=== PATIENT | male | born 1980 | race Caucasian/White ===

== ENCOUNTER 2021-08-04 20:19 | Emergency (ER) | payer SELFPAY ==
[2021-08-04] MEDS ORDERED: KETOROLAC 30 MG/ML INJ ONE (21:21)
--- NOTE | 2021-08-04 21:28 | RAD REPORT ---
EXAM DESCRIPTION: RAD - Knee Left 3 View - 08/04/2021 9:21 pm CLINICAL HISTORY: trauma Trauma, pain COMPARISON: Ankle Right 3 View dated 08/04/2021; Foot Right 3 View dated 08/04/2021 FINDINGS: No acute fracture or dislocation is seen.
--- NOTE | 2021-08-04 21:29 | RAD REPORT ---
EXAM DESCRIPTION: RAD - Ankle Right 3 View - 08/04/2021 9:21 pm CLINICAL HISTORY: trauma Trauma, pain and swelling COMPARISON: No comparisons FINDINGS: Moderate posterior calcaneal spur is seen. No acute fracture or dislocation is evident.
--- NOTE | 2021-08-04 21:29 | RAD REPORT ---
EXAM DESCRIPTION: RAD - Foot Right 3 View - 08/04/2021 9:21 pm CLINICAL HISTORY: trauma Pain and swelling COMPARISON: No comparisons FINDINGS: Moderate posterior calcaneal spur. No acute fracture or dislocation is seen.
--- NOTE | 2021-08-04 21:55 | RAD REPORT ---
EXAM DESCRIPTION: CT - Thoracic Spine W/o Cont - 08/04/2021 9:42 pm CLINICAL HISTORY: Radiculopathy. trauma COMPARISON: No comparisons TECHNIQUE: Axial CT imaging through the thoracic spine was performed with coronal and sagittal re-fo rmatted images. All CT scans are performed using dose optimization technique as appropriate and may include automated exposure control or mA/KV adjustment according to patient size. FINDINGS: Vertebral body heights and disc spaces are largely maintained. A compression fracture is n ot present. No significant disc space narrowing. Thoracic spine alignment is within normal limits. No paraspinal masses or hematoma. Intervertebral disc detail is inherently limited on CT without gross findings of canal compromise. IMPRESSION: No acute abnormality is identified.
--- NOTE | 2021-08-04 21:57 | RAD REPORT ---
EXAM DESCRIPTION: CT - Spine Lumbar Wo Con - 08/04/2021 9:42 pm CLINICAL HISTORY: Radiculopathy. trauma COMPARISON: No comparisons TECHNIQUE: Axial noncontrast CT imaging of the lumbar spine was performed with coronal and sagittal re-formatted images. All CT scans are performed using dose optimization technique as appropriate and may include automated exposure control or mA/KV adjustment according to patient size. FINDINGS: No acute lumbar spine fracture seen. No aggressive marrow pattern or malalignment. Paraspinal tissues are normal in thickness. No paraspinal abscess or hematoma seen. Intervertebral disc disease assessment is inherently limited by CT. Within these limitations, no high -grade canal stenosis suspected. IMPRESSION: No acute lumbar spine abnormality is observed. Consider MRI follow-up for assessment of disc disease if clinically desired.
--- NOTE | 2021-08-04 22:08 | ER ---
Nurse's Notes [facility] Name: Tin Ragsdale Age: 41 yrs Sex: Male : 1980 Arrival Date: 08/04/2021 Time: 20:23 Bed 5 Private MD: Diagnosis: Fall, mechanical;Ankle sprain, Right;Knee contusion, abrasion, Left;Sprain, Lower Back Presentation: 08/04 20:36 Chief complaint: Patient states: I am having mid back pain and right ankle pain. I fell ld1 yesterday in a hole in the road, hitting my knee on the concrete. I am unsure if the two pains are related.. Coronavirus screen: At this time, the client does not indicate any symptoms associated with coronavirus-19. Ebola Screen: No symptoms or risks identified at this time. Initial Sepsis Screen: Does the patient meet any 2 criteria? No. Patient's initial sepsis screen is negative. Does the patient have a suspected source of infection? No. Patient's initial sepsis screen is negative. Risk Assessment: Do you want to hurt yourself or someone else? Patient reports no desire to harm self or others. Onset of symptoms was August 04, 2021. 20:36 Method Of Arrival: Ambulatory ld1 20:36 Acuity: BEAU 4 ld1 Triage Assessment: 20:38 General: Appears in no apparent distress. comfortable, Behavior is calm, cooperative, ld1 appropriate for age. Pain: Complains of pain in lumbar area and anterior aspect of right ankle Pain does not radiate. Pain currently is 7 out of 10 on a pain scale. Quality of pain is described as throbbing, Pain began 1 day ago. Is continuous. Neuro: Level of Consciousness is awake, alert, obeys commands, Oriented to person, place, time, situation. Cardiovascular: Capillary refill < 3 seconds Patient's skin is warm and dry. Respiratory: Airway is patent Respiratory effort is even, unlabored, Respiratory pattern is regular, symmetrical. GI: Abdomen is non-distended, obese. Musculoskeletal: Reports pain in lumbar area and anterior aspect of right ankle. Historical: - Allergies: 20:38 No Known Allergies; ld1 - Home Meds: 20:38 None [Active]; ld1 - PMHx: 20:38 Hypertensive disorder; ld1 - PSHx: 20:38 None; ld1 - Immunization history:: Adult Immunizations up to date, Client reports receiving the 2nd dose of the Covid vaccine. - Social history:: Smoking status: Patient denies any tobacco usage or history of. Patient/guardian denies using alcohol. Screenin:28 Abuse screen: Denies threats or abuse. Nutritional screening: No deficits noted. df1 Tuberculosis screening: No symptoms or risk factors identified. Fall Risk None identified. Assessment: 22:21 General: Appears in no apparent distress. Behavior is calm, cooperative. Pain: df1 Complains of pain in Right ankle, left knee, lumbar Pain at worst was 7 out of 10 on a pain scale. Neuro: No deficits noted. Cardiovascular: No deficits noted. Respiratory: Respiratory effort is even, unlabored, Respiratory pattern is regular, symmetrical, Breath sounds are clear bilaterally. GI: No deficits noted. : No deficits noted. EENT: No deficits noted. Derm:. Musculoskeletal: Capillary refill < 3 seconds, in bilateral toes. Range of motion: intact in right ankle Reports pain in right ankle, left knee, lumbar. Injury Description: Abrasion sustained to left knee. Vital Signs: 20:36 BP 146 / 99; Pulse 54; Resp 18; Temp 97.7; Pulse Ox 98% on R/A; Weight 161 kg; Height 5 ld1 ft. 11 in. (180.34 cm); Pain 3/10; 22:19 BP 140 / 87; Pulse 60; Resp 18; Pulse Ox 98% on R/A; df1 20:36 Body Mass Index 49.50 (161.00 kg, 180.34 cm) ld1 ED Course: 20:23 Patient arrived in ED. cf2 20:38 Triage completed. ld1 20:38 Arm band placed on left wrist. ld1 20:40 Jose Harkins MD is Attending Physician. mh7 21:00 Antoinette Loco, IDALIA is Primary Nurse. bs2 21:21 Ankle Right 3 View XRAY In Process Unspecified. EDMS 21:21 Foot Right 3 View XRAY In Process Unspecified. EDMS 21:21 Knee Left 3 View XRAY In Process Unspecified. EDMS 21:28 Patient has correct armband on for positive identification. Bed in low position. Call df1 light in reach. Side rails up X 1. 21:28 CT Thoracic Spine Wo Cont Sent. df1 21:28 CT Lumbar Spine Wo Con Sent. df1 21:28 No provider procedures requiring assistance completed. df1 21:42 CT Lumbar Spine Wo Con In Process Unspecified. EDMS 21:42 CT Thoracic Spine Wo Cont In Process Unspecified. EDMS 22:06 Clemente Argueta MD is Referral Physician. 7 22:40 Patient did not have IV access during this emergency room visit. bs2 Administered Medications: 21:28 Drug: Ketorolac 60 mg Route: IM; Site: right deltoid; df1 22:24 Follow up: Response: Pain is decreased df1 Outcome: 22:08 Discharge ordered by MD. mh7 22:40 Discharged to home ambulatory. bs2 22:40 Condition: stable 22:40 Discharge instructions given to patient, Instructed on discharge instructions, follow up and referral plans. medication usage, Demonstrated understanding of instructions, follow-up care, medications, Prescriptions given X 2. 22:43 Patient left the ED. bs2 Signatures: Dispatcher [employer] EDDE Yessica Alexis 2 Jose Harkins MD MD [facility] Katlyn Yung, RN RN ld1 Antoinette Loco RN RN bs2 Mary Perez df1
--- NOTE | 2021-08-04 22:09 | EDPHYS ---
Physician Documentation [facility] Name: Tin Ragsdale Age: 41 yrs Sex: Male : 1980 Arrival Date: 08/04/2021 Time: 20:23 Bed 5 Private MD: ED Physician Jose Harkins HPI: 08/04 20:52 This 41 yrs old Male presents to ER via Ambulatory with complaints of Ankle mh7 Injury, PAIN WHEN WALKING, Knee Pain. 20:52 Details of fall: The patient fell from an upright position, while walking, and struck a mh7 concrete surface. Onset: The symptoms/episode began/occurred yesterday. Associated injuries: The patient sustained upper back injury, pain, pain with movement, tenderness, injury to the low back, pain, pain with movement, tenderness, Right ankle, painful injury, Left knee, abrasion, contusion, painful injury. Severity of symptoms: At their worst the symptoms were moderate, earlier today, in the emergency department the symptoms have improved, moderately. Patient states that he was working outside yesterday and stepped into a pothole fell forward injuring his right ankle and left knee. He also has lower back pain. He denies any head trauma or LOC. He denies any neck pain, chest pain, abdominal pain, shortness of breath, urinary/bowel incontinence or retention, dizziness, numbness/tingling, or weakness.. Historical: - Allergies: 20:38 No Known Allergies; ld1 - Home Meds: 20:38 None [Active]; ld1 - PMHx: 20:38 Hypertensive disorder; ld1 - PSHx: 20:38 None; ld1 - Immunization history:: Adult Immunizations up to date, Client reports receiving the 2nd dose of the Covid vaccine. - Social history:: Smoking status: Patient denies any tobacco usage or history of. Patient/guardian denies using alcohol. ROS: 20:52 Constitutional: Negative for fever, chills, and weight loss, Eyes: Negative for injury, mh7 pain, redness, and discharge, ENT: Negative for injury, pain, and discharge, Neck: Negative for injury, pain, and swelling, Cardiovascular: Negative for chest pain, palpitations, and edema, Respiratory: Negative for shortness of breath, cough, wheezing, and pleuritic chest pain, Abdomen/GI: Negative for abdominal pain, nausea, vomiting, diarrhea, and constipation, : Negative for injury, bleeding, discharge, and swelling, Neuro: Negative for headache, weakness, numbness, tingling, and seizure, Psych: Negative for depression, anxiety, suicide ideation, homicidal ideation, and hallucinations, Allergy/Immunology: Negative for hives, rash, and allergies, Endocrine: Negative for neck swelling, polydipsia, polyuria, polyphagia, and marked weight changes, Hematologic/Lymphatic: Negative for swollen nodes, abnormal bleeding, and unusual bruising. Exam: 20:52 Constitutional: This is a well developed, well nourished patient who is awake, alert, mh7 and in no acute distress. Head/Face: Normocephalic, atraumatic. Neck: Trachea midline, no thyromegaly or masses palpated, and no cervical lymphadenopathy. Supple, full range of motion without nuchal rigidity, or vertebral point tenderness. No Meningismus. Chest/axilla: Normal chest wall appearance and motion. Nontender with no deformity. No lesions are appreciated. Cardiovascular: Regular rate and rhythm with a normal S1 and S2. No gallops, murmurs, or rubs. Normal PMI, no JVD. No pulse deficits. Respiratory: Lungs have equal breath sounds bilaterally, clear to auscultation and percussion. No rales, rhonchi or wheezes noted. No increased work of breathing, no retractions or nasal flaring. Abdomen/GI: Soft, non-tender, with normal bowel sounds. No distension or tympany. No guarding or rebound. No evidence of tenderness throughout. 20:52 Neuro: Awake and alert, GCS 15, oriented to person, place, time, and situation. Cranial nerves II-XII grossly intact. Motor strength 5/5 in all extremities. Sensory grossly intact. Cerebellar exam normal. Normal gait. Psych: Awake, alert, with orientation to person, place and time. Behavior, mood, and affect are within normal limits. 20:52 Back: pain, that is mild, of the lumbar area and lower thoracic area, ROM is painful, with all movement, normal spinal alignment noted, CVA tenderness, is absent, vertebral tenderness, is appreciated at lumbar area and lower thoracic area, muscle spasm, is appreciated in the lumbar area and lower thoracic area, Straight leg raises: of both lower extremities does not illicit pain. 20:52 Musculoskeletal/extremity: Extremities: noted in the Ankle and foot: pain, tenderness, , noted in the Left knee: abrasion, contusion, tenderness, ROM: intact in all extremities, Circulation is intact in all extremities. Sensation intact. Compartment Syndrome exam of affected extremity: is normal. no numbness, no tingling, no sensation deficit, no palor, no weak pulses, Joints: Weight bearing: able to fully bear weight, without difficulty, Tendon exam: specific tendon testing normal through active and passive range of motion 20:52 Skin: injury, abrasion(s), small abrasion noted, of the Left anterior knee, contusion(s), that are superficial, of the Left anterior knee. Vital Signs: 20:36 BP 146 / 99; Pulse 54; Resp 18; Temp 97.7; Pulse Ox 98% on R/A; Weight 161 kg; Height 5 ld1 ft. 11 in. (180.34 cm); Pain 3/10; 22:19 BP 140 / 87; Pulse 60; Resp 18; Pulse Ox 98% on R/A; df1 20:36 Body Mass Index 49.50 (161.00 kg, 180.34 cm) ld1 MDM: 22:04 Differential diagnosis: abrasion, contusion, fracture, sprain, strain. Data reviewed: [facility] vital signs, nurses notes, radiologic studies, CT scan, plain films. Data interpreted: Pulse oximetry: on room air is 98 %. Interpretation: normal. Counseling: I had a detailed discussion with the patient and/or guardian regarding: the historical points, exam findings, and any diagnostic results supporting the discharge/admit diagnosis, the presence of at least one elevated blood pressure reading (>120/80) during this emergency department visit, radiology results, the need for outpatient follow up, a orthopedic surgeon, to return to the emergency department if symptoms worsen or persist or if there are any questions or concerns that arise at home. Response to treatment: the patient's symptoms have markedly improved after treatment. 22:04 Refusal of service: The patient/guardian displays adequate decision making capability [facility] and despite a detailed discussion of alternatives, benefits, risks, and consequences refuses: Ankle splint, boot, crutches. 22:08 Patient medically screened. [facility] 08/04 20:51 Order name: Ankle Right 3 View XRAY; Complete Time: 22:01 [facility] 08/04 20:51 Order name: Foot Right 3 View XRAY; Complete Time: 22: [facility] 08/04 20:51 Order name: Knee Left 3 View XRAY; Complete Time: 22:01 [facility] 08/04 20:51 Order name: CT Lumbar Spine Wo Con; Complete Time: 22:01 [facility] 08/04 20:51 Order name: CT Thoracic Spine Wo Cont; Complete Time: 22: [facility] Administered Medications: 21:28 Drug: Ketorolac 60 mg Route: IM; Site: right deltoid; df1 22:24 Follow up: Response: Pain is decreased df1 Disposition Summary: 08/04/21 22:08 Discharge Ordered Location: Home [facility] Problem: [facility] Symptoms: have improved [facility] Condition: Stable [facility] Diagnosis - Fall, mechanical 7 - Ankle sprain, Right 7 - Knee contusion, abrasion, Left [facility] - Sprain, Lower Back [facility] Followup: [facility] - With: Private Physician - When: 1 - 2 days - Reason: Worsening of condition, Recheck today's complaints, Continuance of care, Re-evaluation by your physician Followup: [facility] - With: Clemente Argueta MD - When: 2 - 3 days - Reason: Worsening of condition, Recheck today's complaints Discharge Instructions: - Discharge Summary Sheet [facility] - Ankle Sprain, [id number] mh7 - Contusion, [id number] 7 - Abrasion, [id number] [facility] - Lumbar Sprain [facility] Forms: - Medication Reconciliation Form [facility] - Thank You Letter [facility] - Antibiotic Education [facility] - Prescription Opioid Use [facility] Prescriptions: - Ibuprofen 800 mg Oral Tablet - take 1 tablet by ORAL route every 8 hours As needed take with food; 15 tablet; [facility] Refills: 0, Product Selection Permitted - methocarbamol 500 mg Oral Tablet - take 1 tablet by ORAL route 4 times per day .; 20 tablet; Refills: 0, Product [facility] Selection Permitted Signatures: Dispatcher [employer] Jose Kaur MD MD 7 Katlyn Yung RN RN ld1 Mary Perez df1
[2021-08-04 23:19] VITALS: BP 140/87; TEMP 97.7; O2SAT 98
== END 2021-08-04 22:43 | disposition home or self-care (01) ==
LOC: ER 20:19
DX: S33.5XXA Sprain of ligaments of lumbar spine, initial encounter (principal); S93.401A Sprain of unspecified ligament of right ankle, initial encounter; S80.212A Abrasion, left knee, initial encounter; W19.XXXA Unspecified fall, initial encounter; Y93.01 Activity, walking, marching and hiking; I10 Essential (primary) hypertension
CPT/HCPCS: 72128; 72131; 96372; 99283